=== PATIENT | male | born 1945 | race Caucasian/White ===

== ENCOUNTER 2017-10-20 17:15 | Observation (INO) ==
[2017-10-20 19:23] LABS: Basophils # 0.1 10*3/uL (0.0-0.2); Basophils % 0.2 % (0.0-0.8); Eosinophils % 0.1 % (0.00-10.9); Hematocrit 35.3 VOL% (42.0-52.0); Immature Granulocytes % 1.8 %; Immature Granulocytes Absolute 0.51 #; Lymphocytes # 0.9 10*3/uL (1.4-4.0); Lymphocytes % 3.3 % (21.2-54.2); Mean Corpuscular Hemoglobin 33 PG (27-34); Mean Corpuscular Volume 96.2 FL (87-102); Mean Platelet Volume 10.4 FL (9.6-12.0); Monocytes # 0.3 10*3/uL (0.11-0.8); NRBC # 0.04 10*3/uL; Neutrophils # 26.2 10*3/uL (1.4-7.4); Neutrophils % 93.6 % (38.7-73.9); Platelet Count 269 T/CUMM (130-400); Red Blood Count 3.67 MC/CUMM (3.8-5.5); Red Cell Distribution Width 17.3 % (9.3-17.3)
[2017-10-20 19:32] LABS: Albumin 3.5 G/DL (3.4-5.0); Bilirubin,Total 0.6 MG/DL (0.2-1.0); Calcium 8.9 MG/DL (8.5-10.1); Osmolality,Calculated 281.3 MOS/KG (273-304); Potassium 4.3 MMOL/L (3.5-5.1); Total Protein 7.2 G/DL (6.4-8.3)
[2017-10-20 19:45] LABS: Eosinophils 1 % (0-10); Lymphocytes 4 % (20-55); Platelet Estimate Normal; Segmented Neutrophils 93 % (50-85); Total Cells Counted 100
[2017-10-20] MEDS ORDERED: CEFEPIME 2,000 MG in SODIUM CHLORIDE 0.9% 100 ML IV STA (20:11)
[2017-10-20] MEDS ORDERED: VANCOMYCIN INJ 1,000 MG in SODIUM CHLORIDE 0.9% 250 ML IV STA (20:12)
[2017-10-20] MEDS ORDERED: ACETAMINOPHEN 325 MG TABLET PO PRN (23:12)
[2017-10-20] MEDS ORDERED: ONDANSETRON 4 MG/2 ML VIAL IV PRN (23:12)
[2017-10-21] MEDS: DOCUSATE SODIUM 100 MG CAPSULE PO SCH ×2 (08:54→20:38)
[2017-10-21] MEDS: PANTOPRAZOLE 40 MG TABLET PO SCH (08:54)
[2017-10-21] MEDS: MORPHINE 4 MG/1 ML VIAL IV PRN ×2 (08:56→13:01)
[2017-10-21] MEDS: diphenhydrAMINE CAP 50 MG CAPSULE PO PRN ×2 (13:01→20:37)
[2017-10-22 08:04] VITALS: BP 103/57
[2017-10-22] MEDS: PANTOPRAZOLE 40 MG TABLET PO SCH (08:41)
[2017-10-22] MEDS: DOCUSATE SODIUM 100 MG CAPSULE PO SCH (08:41)
== END 2017-10-22 10:10 | disposition home or self-care (01) ==
LOC: EDBD → EDUNIT# → N.EDINP 17:15 → N.ED 17:15 → N.TELES 23:34
PROVIDERS: ADMIT Family Medicine; ATTEND Family Medicine

== ENCOUNTER 2018-02-13 18:05 | Inpatient (IN) ==
[2018-02-13] MEDS ORDERED: HYDROmorphone 2 MG/1 ML VIAL IV STA (18:52)
[2018-02-13] MEDS ORDERED: ONDANSETRON 4 MG/2 ML VIAL IV STA (18:52)
[2018-02-13] MEDS ORDERED: PROMETHAZINE 25 MG/1 ML VIAL IM STA (18:52)
[2018-02-13 19:08] LABS: Basophils # 0.1 10*3/uL (0.0-0.2); Basophils % 0.8 % (0.0-0.8); Eosinophils # 0.1 10*3/uL (0.0-0.87); Eosinophils % 1.1 % (0.00-10.9); Hematocrit 36.4 VOL% (42.0-52.0); Hemoglobin 12.2 GM/DL (14.0-18.0); Immature Granulocytes % 0.3 %; Immature Granulocytes Absolute 0.02 #; Lymphocytes # 1.8 10*3/uL (1.4-4.0); Lymphocytes % 28.3 % (21.2-54.2); Mean Corpuscular HGB Conc 33.5 GM/DL (32-36); Mean Corpuscular Hemoglobin 32 PG (27-34); Mean Corpuscular Volume 95.5 FL (87-102); Mean Platelet Volume 9.7 FL (9.6-12.0); Monocytes # 0.6 10*3/uL (0.11-0.8); Neutrophils # 3.8 10*3/uL (1.4-7.4); Neutrophils % 60.5 % (38.7-73.9); Platelet Count 229 T/CUMM (130-400); Red Blood Count 3.81 MC/CUMM (3.8-5.5); Red Cell Distribution Width 14.9 % (9.3-17.3); White Blood Count 6.2 T/CUMM (4-12)
[2018-02-13 19:41] LABS: Alanine Aminotransferase 38 U/L (16-61); Albumin 3.3 G/DL (3.4-5.0); Alkaline Phosphatase 97 U/L (45-117); Aspartate Amino Transferase 36 U/L (0-37); Blood Urea Nitrogen 8 MG/DL (7-18); Calcium 8.7 MG/DL (8.5-10.1); Glucose 166 MG/DL (74-106); Osmolality,Calculated 282.3 MOS/KG (273-304); Potassium 3.4 MMOL/L (3.5-5.1); Sodium 141 MMOL/L (136-145); Total Protein 7.4 G/DL (6.4-8.3)
[2018-02-13] MEDS ORDERED: PROMETHAZINE 25 MG/1 ML VIAL IM PRN (21:45)
[2018-02-13] MEDS ORDERED: LACTULOSE 20 GM/30 ML UDCUP PO PRN (21:45)
[2018-02-13] MEDS ORDERED: ACETAMINOPHEN 325 MG TABLET PO PRN (21:45)
[2018-02-13] MEDS ORDERED: ONDANSETRON 4 MG/2 ML VIAL IV PRN (21:45)
[2018-02-13] MEDS: DOCUSATE SODIUM 100 MG CAPSULE PO SCH (22:29)
[2018-02-13] MEDS: SODIUM CHLORIDE 0.9% 1,000 ML IV SCH (22:29)
[2018-02-14] MEDS: HYDROmorphone 2 MG/1 ML VIAL IV PRN ×3 (07:36→17:54)
[2018-02-14] MEDS ORDERED: PROCHLORPERAZINE 10 MG TABLET PO PRN (09:14)
[2018-02-14] MEDS ORDERED: ONDANSETRON 4 MG TABLET PO PRN (09:18)
[2018-02-14] MEDS ORDERED: ACETAMINOPHEN/diphenhydrAMINE 500-25 MG TABLET PO PRN (09:18)
[2018-02-14] MEDS ORDERED: ONDANSETRON ODT 4 MG TABLET PO PRN (09:18)
[2018-02-14] MEDS ORDERED: CETIRIZINE 10 MG TABLET PO PRN (09:18)
[2018-02-14] MEDS: MORPHINE ER 30 MG TABLET PO SCH ×2 (10:13→17:52)
[2018-02-14] MEDS: DOCUSATE SODIUM 100 MG CAPSULE PO SCH ×3 (10:14→21:38)
[2018-02-14] MEDS: PANTOPRAZOLE 40 MG VIAL IV SCH (10:14)
[2018-02-14] MEDS: SODIUM CHLORIDE 0.9% 1,000 ML IV SCH (11:48)
[2018-02-14] MEDS: GABAPENTIN 100 MG CAPSULE PO SCH ×2 (15:27→21:34)
[2018-02-14] MEDS ORDERED: ASPIRIN EC 81 MG TABLET PO SCH (21:00)
[2018-02-14] MEDS: MAGNESIUM OXIDE 400 MG TABLET PO SCH (21:34)
[2018-02-14] MEDS: DRONABINOL 2.5 MG CAPSULE PO SCH (21:34)
[2018-02-14] MEDS: ACETAMINOPHEN 325 MG TABLET PO SCH (21:34)
[2018-02-14] MEDS: GLUCOSAMINE 500 MG TABLET PO SCH (21:34)
[2018-02-15] MEDS: MORPHINE ER 30 MG TABLET PO SCH ×2 (01:14→09:36)
[2018-02-15] MEDS: SODIUM CHLORIDE 0.9% 1,000 ML IV SCH (01:15)
[2018-02-15] MEDS ORDERED: OMEGA 3 ACID ETHYL ESTERS 1 GM CAPSULE PO SCH (09:00)
[2018-02-15] MEDS ORDERED: PANTOPRAZOLE 40 MG TABLET PO SCH (09:00)
[2018-02-15] MEDS ORDERED: amLODIPine 5 MG TABLET PO SCH (09:00)
[2018-02-15] MEDS ORDERED: MULTIVITAMIN (CENTRUM) TABLET PO SCH (09:00)
[2018-02-15] MEDS ORDERED: UMECLIDINIUM BRM INH SCH (09:00)
[2018-02-15] MEDS ORDERED: CELECOXIB 200 MG CAPSULE PO SCH (09:00)
[2018-02-15] MEDS ORDERED: VILANTEROL TR INH SCH (09:00)
[2018-02-15] MEDS ORDERED: POTASSIUM GLUCONATE 500 MG TABLET PO SCH (09:00)
[2018-02-15] MEDS ORDERED: LISINOPRIL 20 MG TABLET PO SCH (09:00)
[2018-02-15] MEDS: GLUCOSAMINE 500 MG TABLET PO SCH (09:35)
[2018-02-15] MEDS: DRONABINOL 2.5 MG CAPSULE PO SCH (09:35)
[2018-02-15] MEDS: MAGNESIUM OXIDE 400 MG TABLET PO SCH (09:35)
[2018-02-15] MEDS: DOCUSATE SODIUM 100 MG CAPSULE PO SCH (09:35)
[2018-02-15] MEDS: GABAPENTIN 100 MG CAPSULE PO SCH (09:36)
[2018-02-15] MEDS: PANTOPRAZOLE 40 MG VIAL IV SCH (09:36)
[2018-02-15] MEDS: ACETAMINOPHEN 325 MG TABLET PO SCH (09:52)
[2018-02-15 11:54] VITALS: BP 101/66
== END 2018-02-15 12:25 | disposition home or self-care (01) | DRG 948 ==
LOC: EDUNIT# → N.ED 18:05 → N.EDINP 19:36 → N.4E 20:34
PROVIDERS: ADMIT Family Medicine; ATTEND Family Medicine

== ENCOUNTER 2018-04-02 16:27 | Observation (INO) ==
[2018-04-02] MEDS ORDERED: SODIUM CHLORIDE 0.9% 500 ML IV STA (17:21)
[2018-04-02] MEDS ORDERED: methylPREDNISolone SOD SUC 125 MG/2 ML VIAL IV STA (17:22)
[2018-04-02] MEDS: ALBUTEROL/IPRATROPIUM 3 ML NEB RESP TX STA ×2 (17:36→17:38)
[2018-04-02 18:01] LABS: Basophils % 0.3 % (0.0-0.8); Hematocrit 38.9 VOL% (42.0-52.0); Hemoglobin 13.1 GM/DL (14.0-18.0); Immature Granulocytes % 0.5 %; Immature Granulocytes Absolute 0.03 #; Lymphocytes # 0.5 10*3/uL (1.4-4.0); Lymphocytes % 7.3 % (21.2-54.2); Mean Corpuscular HGB Conc 33.7 GM/DL (32-36); Mean Corpuscular Hemoglobin 31 PG (27-34); Mean Corpuscular Volume 92.6 FL (87-102); Mean Platelet Volume 10.1 FL (9.6-12.0); Monocytes # 0.3 10*3/uL (0.11-0.8); Monocytes % 4.3 % (1.7-12.7); Neutrophils # 5.5 10*3/uL (1.4-7.4); Neutrophils % 87.6 % (38.7-73.9); Platelet Count 220 T/CUMM (130-400); Red Cell Distribution Width 13.2 % (9.3-17.3); White Blood Count 6.3 T/CUMM (4-12)
[2018-04-02 18:12] LABS: ABG Base Excess 0.7 MMOL/L (-2.5-2.5); ABG HCO3 24.9 MMOL/L (20-26); ABG Oxygen Saturation 88.5 % (95-100); ABG PCO2 37.6 MM HG (35-48); ABG PH 7.428 (7.35-7.45); ABG PO2 54.7 MM HG (80-95); ABG TCO2 21.8 MMOL/L (23-27); Allen Test Positive; Pt O2 Delivery Device Room Air
[2018-04-02 18:18] LABS: PT Patient Result 10.6 SECS
[2018-04-02 18:27] LABS: Alanine Aminotransferase 35 U/L (16-61); Albumin 3.4 G/DL (3.4-5.0); Alkaline Phosphatase 99 U/L (45-117); Aspartate Amino Transferase 59 U/L (0-37); Blood Urea Nitrogen 17 MG/DL (7-18); Calcium 8.7 MG/DL (8.5-10.1); Glucose 172 MG/DL (74-106); Osmolality,Calculated 273.2 MOS/KG (273-304); Potassium 3.8 MMOL/L (3.5-5.1); Sodium 134 MMOL/L (136-145); Total Protein 7.4 G/DL (6.4-8.3)
[2018-04-02 18:38] LABS: Apearance,Urine Slightly Hazy (Clear); Bacteria,Urine Occasional /HPF (Few); Bilirubin,Urine Negative (Negative); Blood, Urine Negative (Negative); Glucose,Urine (UA) Negative (Negative); Hyaline Casts,Urine 51 /LPF (0-3); Ketones,Urine 5 mg/dL (Negative); Mucus,Urine Occasional /LPF (Occasional); Nitrite,Urine Negative (Negative); Protein,Urine Negative; RBC,Urine 1 /HPF (0-4); Squamous Epithelial Cell,Urine Occasional /HPF (0-10); Urine Color Yellow (Yellow); Urine Specific Gravity 1.016 (1.001-1.035); Urine Urobilinogen < 2.0 EU/DL (0.2-1.0); WBC,Urine 42 /HPF (0-6)
[2018-04-02 18:45] LABS: Barbiturates Screen,Urine Negative (Negative); Benzodiazepines Screen,Urine Positive (Negative); Cannabinoid Screen,Urine Positive (Negative); Opiate Screen,Urine Positive (Negative); Phencyclidine Screen,Urine Negative (Negative)
[2018-04-02 18:49] LABS: Salicylate < 2.8 MG/DL (2.8-20)
[2018-04-02 18:50] LABS: Acetaminophen < 2.0 UG/ML (10-30)
[2018-04-02] MEDS ORDERED: LEVOFLOXACIN INJ 500 MG in PREMIX 1 EACH IV STA (18:55)
[2018-04-02] MEDS ORDERED: ACETAMINOPHEN 325 MG TABLET PO PRN (19:59)
[2018-04-02] MEDS ORDERED: ONDANSETRON 4 MG/2 ML VIAL IV PRN (19:59)
[2018-04-02] MEDS ORDERED: NITROGLYCERIN SL 0.4 MG TABLET SL PRN (20:04)
[2018-04-02] MEDS ORDERED: ONDANSETRON 4 MG TABLET PO PRN (20:04)
[2018-04-02] MEDS ORDERED: [UNRECOGNIZED DRUG - OTHER] PO PRN (20:04)
[2018-04-02] MEDS ORDERED: ALPRAZolam 0.25 MG TABLET PO PRN (20:04)
[2018-04-02] MEDS ORDERED: ACETAMIN PO PRN (20:04)
[2018-04-02] MEDS ORDERED: MELATONIN 3 MG TABLET PO SCH (21:00)
[2018-04-02] MEDS ORDERED: ENOXAPARIN 40 MG/0.4 ML SYRINGE SUBCUT SCH (21:00)
[2018-04-02] MEDS ORDERED: ASPIRIN EC 81 MG TABLET PO SCH (21:00)
[2018-04-02] MEDS ORDERED: LORazepam 2 MG/1 ML VIAL IM ONE (21:29)
[2018-04-02] MEDS ORDERED: HALOPERIDOL 5 MG/ML AMP IM ONE (21:30)
[2018-04-03] MEDS: MAGNESIUM OXIDE 400 MG TABLET PO SCH ×2 (01:25→19:28)
[2018-04-03] MEDS: DRONABINOL 2.5 MG CAPSULE PO SCH ×3 (01:25→19:29)
[2018-04-03] MEDS: QUEtiapine 25 MG TABLET PO SCH ×2 (01:26→08:35)
[2018-04-03] MEDS: MORPHINE ER 30 MG TABLET PO SCH ×2 (01:26→08:35)
[2018-04-03] MEDS ORDERED: PANTOPRAZOLE 40 MG TABLET PO SCH ×2 (09:00)
[2018-04-03] MEDS ORDERED: predniSONE 10 MG TABLET PO SCH (09:00)
[2018-04-03] MEDS ORDERED: POTASSIUM CHLORIDE 10 MEQ TABLET PO SCH (09:00)
[2018-04-03] MEDS ORDERED: LISINOPRIL 20 MG TABLET PO SCH (09:00)
[2018-04-03] MEDS ORDERED: oxyCODONE IR 5 MG TABLET PO PRN (09:13)
[2018-04-03 10:20] VITALS: BP 137/79
[2018-04-03] MEDS ORDERED: LEVOFLOXACIN INJ 500 MG in PREMIX 1 EACH IV SCH (21:00)
== END 2018-04-03 14:05 ==
LOC: EDBD → EDUNIT# → N.EDINP 16:27 → N.ED 16:27 → N.5E 20:43 → N.3W 04-03 08:56
PROVIDERS: ADMIT Internal Medicine; ATTEND Internal Medicine

== ENCOUNTER 2018-06-05 12:25 | Inpatient (IN) ==
[2018-06-05] MEDS ORDERED: ALPRAZolam 0.5 MG TABLET PO PRN (14:01)
[2018-06-05] MEDS ORDERED: NALOXONE 0.4 MG/ML VIAL IV PRN (14:17)
[2018-06-05] MEDS ORDERED: HYDROMORPHONE IV SCH ×2 (14:30)
[2018-06-05] MEDS ORDERED: LACTULOSE 20 GM/30 ML UDCUP PO PRN (15:25)
[2018-06-05] MEDS: PANTOPRAZOLE 40 MG TABLET PO SCH ×2 (20:19→21:39)
[2018-06-05] MEDS: QUEtiapine 25 MG TABLET PO SCH (21:39)
[2018-06-05] MEDS: PROMETHAZINE INJ 25 MG in SODIUM CHLORIDE 0.9% 50 ML IV PRN (21:50)
[2018-06-06] MEDS: PROMETHAZINE INJ 25 MG in SODIUM CHLORIDE 0.9% 50 ML IV PRN ×2 (02:32→07:25)
[2018-06-06] MEDS ORDERED: ZIPRASIDONE 20 MG/1 ML VIAL IM ONE (08:38)
[2018-06-06] MEDS: QUEtiapine 25 MG TABLET PO SCH (08:51)
[2018-06-06] MEDS: PANTOPRAZOLE 40 MG TABLET PO SCH ×2 (08:51→21:31)
[2018-06-06] MEDS: LORazepam 2 MG/1 ML VIAL IV PRN ×2 (11:08→19:05)
[2018-06-06] MEDS ORDERED: PROMETHAZINE 25 MG TABLET PO PRN (16:10)
[2018-06-06] MEDS: KETOROLAC 30 MG/1 ML VIAL IV SCH (21:28)
[2018-06-06] MEDS: QUEtiapine 100 MG TABLET PO SCH (21:31)
[2018-06-07] MEDS: LORazepam 2 MG/1 ML VIAL IV PRN ×2 (09:58→20:55)
[2018-06-07] MEDS: QUEtiapine 100 MG TABLET PO SCH ×2 (09:58→20:53)
[2018-06-07] MEDS: KETOROLAC 30 MG/1 ML VIAL IV SCH ×2 (10:02→20:54)
[2018-06-07] MEDS: PANTOPRAZOLE 40 MG TABLET PO SCH ×3 (10:05→21:59)
[2018-06-08] MEDS: LORazepam 2 MG/1 ML VIAL IV PRN (01:26)
[2018-06-08] MEDS: fentaNYL 50 MCG/HR PATCH TRANSDERM SCH (08:17)
[2018-06-08] MEDS: KETOROLAC 30 MG/1 ML VIAL IV SCH ×2 (08:18→20:50)
[2018-06-08] MEDS: PANTOPRAZOLE 40 MG TABLET PO SCH ×2 (08:27→20:05)
[2018-06-08] MEDS: QUEtiapine 100 MG TABLET PO SCH ×2 (08:28→20:05)
[2018-06-08] MEDS: LORazepam 2 MG/1 ML VIAL IV SCH ×3 (12:05→19:50)
[2018-06-09] MEDS: LORazepam 2 MG/1 ML VIAL IV SCH ×6 (00:49→19:47)
[2018-06-09] MEDS: QUEtiapine 100 MG TABLET PO SCH ×2 (08:23→22:13)
[2018-06-09] MEDS: PANTOPRAZOLE 40 MG TABLET PO SCH ×2 (08:23→22:13)
[2018-06-09] MEDS: KETOROLAC 30 MG/1 ML VIAL IV SCH ×2 (08:31→22:30)
[2018-06-09] MEDS ORDERED: LORazepam 2 MG/1 ML VIAL IV PRN (13:45)
[2018-06-10] MEDS: LORazepam 2 MG/1 ML VIAL IV SCH ×7 (05:07→23:44)
[2018-06-10] MEDS: QUEtiapine 100 MG TABLET PO SCH ×2 (08:52→20:16)
[2018-06-10] MEDS: PANTOPRAZOLE 40 MG TABLET PO SCH ×2 (08:52→20:16)
[2018-06-10] MEDS: KETOROLAC 30 MG/1 ML VIAL IV SCH ×2 (08:54→20:17)
[2018-06-10] MEDS: ATROPINE 1 % OPH SOLN 5 ML BOTTLE SL PRN (13:14)
[2018-06-11] MEDS: LORazepam 2 MG/1 ML VIAL IV SCH ×3 (03:56→12:32)
[2018-06-11] MEDS: PANTOPRAZOLE 40 MG TABLET PO SCH (08:46)
[2018-06-11] MEDS: QUEtiapine 100 MG TABLET PO SCH (08:46)
[2018-06-11] MEDS: fentaNYL 50 MCG/HR PATCH TRANSDERM SCH (08:51)
[2018-06-11] MEDS: ATROPINE 1 % OPH SOLN 5 ML BOTTLE SL PRN ×2 (08:52→12:33)
[2018-06-11] MEDS: KETOROLAC 30 MG/1 ML VIAL IV SCH (08:52)
[2018-06-11 11:51] VITALS: BP 69/44
== END 2018-06-11 14:40 | disposition expired | DRG 951 ==
LOC: N.4E 13:25
PROVIDERS: ADMIT Internal Medicine; ATTEND Internal Medicine